=== PATIENT | male | born 1970 | race Two or more races ===

== ENCOUNTER → 2024-07-07 | Outpatient (CLI) | payer MEDICARE, MEDICAID ==
[~2024-07-07] VITALS: Ht 170.2 cm; Wt 104.3 kg
[~2024-07-07] MED LIST: ADENOSINE 88 MG in GIVE UN-DILUTED 0 ML IV ONE; ADENOSINE 90 MG/30 ML INJ IV ONE
== END | disposition home or self-care (01) ==
LOC: Rad HDHVI 09:53
PROVIDERS: ATTEND Internal Medicine Cardiovascular Disease
DX: Z01.810 Encounter for preprocedural cardiovascular examination (principal); I25.10 Atherosclerotic heart disease of native coronary artery without angina pectoris; I25.2 Old myocardial infarction; E78.00 Pure hypercholesterolemia, unspecified; I45.10 Unspecified right bundle-branch block; I12.9 Hypertensive chronic kidney disease with stage 1 through stage 4 chronic kidney disease, or unspecified chronic kidney disease; E11.22 Type 2 diabetes mellitus with diabetic chronic kidney disease; E11.42 Type 2 diabetes mellitus with diabetic polyneuropathy; N18.9 Chronic kidney disease, unspecified; I49.3 Ventricular premature depolarization; I49.1 Atrial premature depolarization; Z82.49 Family history of ischemic heart disease and other diseases of the circulatory system
CPT/HCPCS: 78452; 93005; A9500; J0153; 96374; 96375

== ENCOUNTER → 2024-07-08 | Outpatient (CLI) | payer MEDICARE, MEDICAID | END | disposition home or self-care (01) | LOC: Rad HDHVI 08:03 | PROVIDERS: ATTEND Internal Medicine Cardiovascular Disease | DX: I35.1 Nonrheumatic aortic (valve) insufficiency (principal); I10 Essential (primary) hypertension; E66.9 Obesity, unspecified | CPT/HCPCS: 93306 ==

== ENCOUNTER 2024-07-27 07:42 | Day surgery (SDC) | payer OTHER, MEDICAID ==
[2024-07-23 10:38] LABS: Basophils # (auto) 0.1 10 ^3/uL (0-0.2); Basophils % (auto) 1.2 % (0.0-2.0); Eosinophils # (auto) 0.2 10 ^3/uL (0-0.8); Eosinophils % (auto) 2.9 % (0.0-7.0); Hemoglobin 16.3 g/dL (13.5-17.5); Lymphocytes # (auto) 2.3 10 ^3/uL (0.4-5.4); Lymphocytes % (auto) 37.4 % (10.0-50.0); Mean Corpuscular Hemoglobin 31.7 pg (28.0-32.0); Mean Corpuscular Hgb Conc. 32.6 g/dL (32.0-36.0); Mean Corpuscular Volume 97.1 fL (80.0-100.0); Monocytes # (auto) 0.4 10 ^3/uL (0-1.3); Monocytes % (auto) 7.1 % (0.0-12.0); Neutrophils # (auto) 3.1 10 ^3/uL (1.6-8.6); Neutrophils % (auto) 51.4 % (37.0-80.0); Nucleated Red Blood Cells % 0.4 %; Platelet Count (auto) 234 10^3/uL (140-450); Red Blood Cells 5.15 10^6/uL (4.5-5.90); Red Cell Distribution Width 14.5 % (11.8-14.3); White Blood Cell 6.1 10^3/uL (4.4-10.8)
[2024-07-23 10:44] LABS: Urine Bacteria FEW /hpf (None Seen); Urine Blood TRACE /uL (Negative); Urine Clarity Clear (Clear); Urine Color Yellow (Yellow); Urine Protein, UAD 3+ (Negative); Urine Specific Gravity 1.017 (1.001-1.035); Urine Squamous Epithelial Cell FEW /hpf (<5); Urine Urobilinogen Normal (Negative); Urine WBC 14 /HPF (0-3)
[2024-07-23 10:50] LABS: INR 0.97 (0.9-1.15); Partial Thromboplastin Time 27.1 SEC (24.5-34.5); Prothrombin Time 10.3 sec (9.3-11.8)
[2024-07-23 11:02] LABS: Alanine Aminotransferase 19 U/L (7-40); Albumin 4.6 g/dL (3.2-4.8); Alkaline Phosphatase 96 U/L (46-116); Anion Gap 5 (5-15); Aspartate Aminotransferase 24 U/L (13-40); Calcium 9.6 mg/dL (8.7-10.4); Glucose 95 mg/dL (74-106); Sodium 136 mmol/L (136-145)
[2024-07-23 11:24] LABS: Bilirubin, Total 1.5 mg/dL (0.2-1.0); Blood Urea Nitrogen 27 mg/dL (9-23); Carbon Dioxide 36 mmol/L (20-31); Chloride 95 mmol/L (98-107); Potassium 3.4 mmol/L (3.5-5.1); Total Protein 8.9 g/dL (5.7-8.2)
[~2024-07-27] VITALS: Ht 170.2 cm; Wt 104.3 kg
[~2024-07-27 07:42] MED LIST changes: -ADENOSINE 88 MG in GIVE UN-DILUTED 0 ML IV ONE; -ADENOSINE 90 MG/30 ML INJ IV ONE; +ATOR-507 PO; +CARV6.2551 PO; +FURO40TA4 PO; +LOSA-534 PO; +NIFE1TAB31 PO; +SEVE800T8 PO; +SODI10PA PO
[2024-07-27] MEDS ORDERED: ceFAZolin 2 GM/D5W100ml 100 ML IV ONE (08:07)
[2024-07-27] MEDS ORDERED: BUPIVACAINE 0.5% MPF INJ 30ML SDV IJ ONE (08:41)
[2024-07-27] MEDS ORDERED: GABAPENTIN 300 MG CAP ONE (08:47)
[2024-07-27] MEDS ORDERED: ACETAMINOPHEN IV 100 ML IV ONE (08:47)
[2024-07-27] MEDS: GABAPENTIN 300 MG CAP PO ONE (08:50)
[2024-07-27] MEDS: ACETAMINOPHEN IV 1000 MG/100ML (10MG/ML) IV ONE (08:50)
[2024-07-27] MEDS ORDERED: LIDOCAINE 1% INJ PF 5ML AMP ONE (08:53)
[2024-07-27] MEDS ORDERED: ONDANSETRON HCL 4 MG/2 ML VIAL ONE (08:53)
[2024-07-27] MEDS ORDERED: GLYCOPYRROLATE 0.2 MG/ML 1ML VIAL ONE (08:53)
[2024-07-27] MEDS ORDERED: DexAMETHasone SOD PHOS 10MG/1ML VIAL INJ ONE (08:53)
[2024-07-27] MEDS ORDERED: PROPOFOL 10 MG/ML 20 ML IV ONE ×2 (08:53→09:14)
[2024-07-27] MEDS ORDERED: KETAMINE 50mg/ML 1ml syringe ONE (08:55)
[2024-07-27 09:30] VITALS: PULSE 65; RESP 20; O2SAT 96
[2024-07-27 09:40] VITALS: PULSE 82; RESP 13; O2SAT 97
[2024-07-27] MEDS ORDERED: NALOXONE HCL 0.4 MG/ML VIAL IV PRN (09:45)
[2024-07-27] MEDS ORDERED: ONDANSETRON HCL 4 MG/2 ML VIAL IV PRN (09:45)
[2024-07-27] MEDS ORDERED: FLUMAZENIL 0.1 MG/ML INJ 10ML MDV IV PRN (09:45)
[2024-07-27] MEDS ORDERED: HYDROmorphone HCL 2 MG/ML VL/or syr IV PRN (09:45)
[2024-07-27] MEDS ORDERED: ePHEDrine SULFATE 50 MG/ML AMP IV PRN (09:45)
[2024-07-27] MEDS ORDERED: fentaNYL CITRATE 100 MCG/2 ML VL IV PRN (09:45)
[2024-07-27] MEDS ORDERED: hydrALAZINE HCL 20 MG/ML VL IV PRN (09:45)
[2024-07-27 09:54] VITALS: PULSE 65; RESP 20; O2SAT 96
[2024-07-27 10:00] VITALS: BP 134/78; PULSE 65; RESP 12; O2SAT 95
[2024-07-27] MEDS: BUPIVACAINE 0.5% P/F INJ 10 ML VIAL ONE (10:31)
--- NOTE | 2024-07-27 13:32 | DVHOP2 ---
Operative Report - 2 Report Details Date: 07/27/24 Preop Diagnosis: 1. Right foot metatarsalgia 2. Right foot plantar diabetic wound 3. Right foot abscess Postop Diagnosis: Right foot plantar foot wound Surgeon: Geo Motley MD Anesthesiologist: See anesthesia Anesthesia: Mac Consent: The patient was informed of the risks and benefits of the procedure. These include but are not limited to complications of anesthesia, postoperative infection, incomplete relief of symptoms, recurrence of symptoms, damage to blood vessels, nerves and tendons, deep venous thrombosis, pulmonary embolism and possible need for repeat surgery in the future. Complications: None Estimated Blood Loss: Minimal Fluids: See anesthesia Findings: Consistent with the diagnosis Indications for Surgery: Worsening right foot pain and wound Name of Procedure Performed 1. Right foot alli osteotomy 3rd metatarsal (89950) 2. Right foot wound debridement (75851) Procedure Details Procedure Details: PRE-PROCEDURE INFORMATION: In the pre-op holding area, the extremity to be oper ated on was clearly marked and the patient verified correct laterality of the marking. The patient was transferred to the OR table and placed in a supine position. A timeout was performed in which identification of the correct patient, procedure, location, and materials was done. The right foot and leg were prepped and draped in normal sterile fashion. DESCRIPTION OF PROCEDURE: Attention was directed to the right 3rd metatarsal. The incision was deepened through blunt and sharp dissection. Care was taken to avoid any damage to neurovascular structures throughout the dissection. Incision was carried to the level of the 3rd metatarsal neck. Using an MIS per, an osteotomy was made across the neck of the metatarsal head. It was noted on intraoperative fluoroscopy, there was significant reduction of the deformity. Attention was directed to the right plantar foot. Debridement was done to the right plantar foot with a 15. Blade. Below Subcutaneous debridement, below Subcutaneous tissue excised u, with a total area debrided of sq cm. < 20 sq cm was excised, 100% of the wounds were debrided All surgical wounds were irrigated copiously with saline and closed in layers with the aforementioned suture material. A dry sterile dressing was placed on the surgical extremity. The patient was placed in a postop shoe POSTOPERATIVE INFORMATION: The patient tolerated the above noted procedure and anesthesia well and was transferred to the PACU with vital signs stable, and vascular status intact with capillary refill intact to all digits. Postoperative instructions reviewed in detail with the patient with written instructions provided. Patient will return to clinic in approximately 10-14 days for first postoperative visit. Patient has the number of the clinic and was instructed to call prior to that time should any problems, questions, or concerns arise. Condition Good Disposition Home GEO MOTLEY DPM Jul 27, 2024 13:32
== END 2024-07-27 10:15 | disposition home or self-care (01) ==
LOC: SUR 07:42
PROVIDERS: ATTEND Podiatrist
DX: M77.41 Metatarsalgia, right foot (principal); E10.621 Type 1 diabetes mellitus with foot ulcer; L97.511 Non-pressure chronic ulcer of other part of right foot limited to breakdown of skin; L02.611 Cutaneous abscess of right foot; I12.0 Hypertensive chronic kidney disease with stage 5 chronic kidney disease or end stage renal disease; E10.22 Type 1 diabetes mellitus with diabetic chronic kidney disease; N18.6 End stage renal disease; E10.42 Type 1 diabetes mellitus with diabetic polyneuropathy; E66.01 Morbid (severe) obesity due to excess calories; I25.10 Atherosclerotic heart disease of native coronary artery without angina pectoris; I25.2 Old myocardial infarction; Z95.5 Presence of coronary angioplasty implant and graft; Z99.2 Dependence on renal dialysis; Z79.899 Other long term (current) drug therapy
CPT/HCPCS: 11042; 28308; 36415; 80053; 81001; 85025; 85610; 85730; J1100; J2405; J2704; J3490; J0131

== ENCOUNTER 2024-09-23 08:51 | Emergency (ER) | payer OTHER, MEDICAID ==
[~2024-09-23] VITALS: Ht 170.2 cm; Wt 110.1 kg
[2024-09-23 11:28] VITALS: BP 124/80; PULSE 69; RESP 15; TEMP 98.1; O2SAT 98
--- NOTE | 2024-09-23 11:32 | ED.PDOC ---
History of Present Illness(SKN HPI Comments A 54 year old male presents to the ED c/o possible abscess of back. Patient states he has had a painful lump on his middle to lower back region for the past 1 year. Patient reports this lump began to become red and increasingly painful with swelling over the past 1 week, prompting him to come to the ED for evaluation. Patient is concerned he may have an abscess to this area. Denies fever, SOB, chest pain, abdominal pain, nausea, vomiting, diarrhea, headache, dizziness, vision changes, or numbness/tingling of extremities. No other symptoms or modifying factors reported at this time. Patient is alert and oriented x4 and has a stable gait. Chief Complaint: Abscess Time Seen by MD: 09:18 History of Present Illness: Nurses Notes, Medications, Allergies Allergies: Coded Allergies: No Known Drug Allergy (Verified Allergy, Unknown, 07/07/24) Home Meds Active Scripts Doxycycline Hyclate (DOXYCYCLINE HYCLATE) 100 Mg Tab, 1 TAB PO BID for 7 Days, #14 TAB 0 Refills Prov:LUIS ZAIDI AXMINSTER RUG SETTER 09/23/24 Reported Medications Carvedilol (Carvedilol) 6.25 Mg Tab, 6.25 MG PO BID, TAB 07/23/24 Sodium Zirconium Cyclosilicate (Lokelma) 10 Gm Roel, 10 GM PO DAILY, PACK 07/23/24 Furosemide (Furosemide) 40 Mg Tab, 40 MG PO DAILY, TAB 07/23/24 Atorvastatin Calcium (Lipitor) 40 Mg Tab, 40 MG PO DAILY, TAB 07/23/24 Nifedipine (Nifedipine Er) 30 Mg Tab, 30 MG PO DAILY, TAB 07/23/24 Sevelamer Carbonate (Renvela) 800 Mg Tab, 400 MG PO BID, TAB 07/23/24 Losartan Potassium (Losartan Potassium) 50 Mg Tab, 50 MG PO DAILY, TAB 07/23/24 Information Source: Patient Mode of Arrival: Ambulatory Severity: Moderate Timing: Days Duration: Since onset, Days Prehospital treatment: None Location: Back Mechanism: Spontaneous Onset Occurence: Indoors Object: None Condition of Object: None Retained Foreign Body: No Wound Type: Abscess Immunization Status of Animal: NA Tetanus: Unknown History of: None Associated Signs and Symptoms: Redness, Swelling, Pain Past Medical History PAST MEDICAL HISTORY: ESRD, High Lipids, HTN Surgical History: Denies all surgeries Family History Family History: Reviewed,noncontributory to illness Social History Smoker: Non-Smoker Alcohol: Denies ETOH Use Drugs: Denies Drug Use Lives In: Home Constitutional: denies: chills, diaphoresis, fatigue, fever, malaise, sweats, weakness, others EENTM: denies: blurred vision, double vision, ear bleeding, ear discharge, ear drainage, ear pain, ear ringing, eye pain, eye redness, hearing loss, mouth pain, mouth swelling, nasal discharge, nose bleeding, nose congestion, nose pain, photophobia, tearing, throat pain, throat swelling, voice changes, others Respiratory: denies: cough, hemoptysis, orthopnea, SOB at rest, shortness of breath, SOB with excertion, stridor, wheezing, others Cardiovascular: denies: chest pain, dizzy spells, diaphoresis, Dyspnea on exertion, edema, irregular heart beat, left arm pain, lightheadedness, palpitations, PND, syncope, others Gastrointestinal: denies: abdomen distended, abdominal pain, blood streaked bowels, constipated, diarrhea, dysphagia, difficulty swallowing, hematemesis, melena, nausea, poor appetite, poor fluid intake, rectal bleeding, rectal pain, vomiting, others Genitourinary: denies: burning, dysuria, flank pain, frequency, hematuria, incontinence, penile discharge, penile sore, pain, testicle pain, testicle swelling, urgency, others Neurological: denies: dizziness, fainting, headache, left sided numbness, left sided weakness, numbness, paresthesia, pre-existing deficit, right sided numbness, right sided weakness, seizure, speech problems, tingling, tremors, weakness, others Musculoskeletal: denies: back pain, gout, joint pain, joint swelling, muscle pain, muscle stiffness, neck pain, others Integumetry: reports: lumps (abscess to middle/lower back); denies: bruises, change in color, change in hair/nails, dryness, laceration, lesions, rash, wounds, others Allergic/Immunocompromised: denies: Difficulty Healing, Frequent Infections, Hives, Itching, others Hematologic/Lymphatic: denies: anemia, blood clots, easy bleeding, easy bruising, swollen glands, others Endocrine: denies: excessive hunger, excessive sweating, excessive thirst, excessive urination, flushing, intolerance to cold, intolerance to heat, unexplained weight gain, unexplained weight loss, others Psychiatric: denies: anxiety, bipolar disorder, depression, hopeless, panic disorder, schizophrenia, sleepless, suicidal, others All Other Systems: Reviewed and Negative Physical Exam General Appearance: No Apparent Distress, Normal HEENT: Normal ENT Inspection, Pharynx Normal, TMs Normal Neck: Full Range of Motion, Non-Tender, Normal, Normal Inspection Respiratory: Chest Non-Tender, Lungs Clear, No Accessory Muscle Use, No Respiratory Distress, Normal Breath Sounds Cardiovascular: No Edema, No JVD, No Murmur, No Gallop, Normal Peripheral Pulses, Regular Rate/Rhythm Breast Exam: Deferred Gastrointestinal: No Organomegaly, Non Tender, No Pulsatile Mass, Normal Bowel Sounds, Soft Genitalia: Deferred Pelvic: Deferred Rectal: Deferred Extremities: No calf tenderness, Normal capillary refill, Normal inspection, Normal range of motion, Non-tender, No pedal edema Musculoskeletal : Apperance: Normal Neurologic: Alert, print designer II-XII nml as Tested, No Motor Deficits, Normal Affect, Normal Mood, No Sensory Deficits Cerebellar Function: Normal Reflexes: Normal Skin: Dry, Warm, Other (Round 2x2cm erythematous soft tissue swelling notes to right lumbar paraspinal region. Tenderness to palpation noted with fluctuance. No crepitus on palpation.) Lymphatic: No Adenopathy Was a procedure done? Was a procedure done?: No Differential Diagnosis (INTG) Differential Diagnosis: N/A Differential Diagnosis: Abscess, Cellulitis, Erysipelas, Other (Furuncle, soft tissue infection) Differential Diagnosis: N/A Abscess: N/A Differential Diagnosis: N/A X-Ray, Labs, Meds, VS Vital Signs Date Time Temp Pulse Resp B/P (MAP) Pulse Ox O2 Delivery O2 Flow Rate FiO2 09/23/24 11:28 98.1 69 15 124/80 (95) 98 98.1 09/23/24 10:47 83 09/23/24 10:47 98.8 83 18 94/57 (69) 98.8 09/23/24 10:38 98.2 70 18 120/83 (95) 98 98.2 09/23/24 08:52 98.8 83 18 94/57 (69) 95 98.8 X-Ray, Labs, Meds, VS Comment This patient presents with signs and symptoms consistent with a cutaneous abscess. The abscess is localized without any evidence of deep soft tissue infection based on physical examination. The patient required incision and drainage. Differential diagnosis considered but not limited to: abscess, folliculitis, cellulitis. I also considered deep space infection, necrotizing fasciitis, sepsis, however, this is less likely as the patient does not have rapid expanding erythema or pain out of proportion to suggest necrotizing fasciitis. There is no evidence of sepsis on both a review of their vitals and clinical exam. Procedure Note: Verbal informed consent was obtained from the patient. I discussed the indications, benefits, alternatives and complications to performing an incision and drainage. The patient understands the risks include, but are not limited to scarring, underlying structure injury, bleeding, nerve injury, new infection, and resultant disability. The skin overlying the abscess was prepared with chlorahexidine. The skin surrounding the abscess was locally anesthetized using 1% Lidocaine An incision using a number 11 blade scalpel was made overlying the abscess. The incision was 1 cm long. Loculations were bluntly dissected using a hemostat. Careful exploration of the abscess cavity demonstrated no foreign body. The abscess cavity was packed with sterile packing. The wound was then dressed with sterile gauze. The wound was hemostatic at the conclusion of the procedure. The patient did not appear to suffer any complications as a result of the procedure. The patient was given DOXYCYCLINE 100 mg BID x 10 days and will f/u with PMD 3-5 days or return to the ER sooner if it worsens. The patient is given instructions and materials to repack the wound DAILY. The patient was counseled in regard to the diagnosis and management of the condition and verbalized understanding of this. The patient understands to return to the ER or seek immediate medical attention if the symptoms worsen. Time of 1ST Reevaluation: 12:15 Reevaluation 1ST: Improved Patient Education/Counseling: Diagnosis, Treatment, Need For Follow Up Family Education/Counseling: Diagnosis, Treatment, Need For Follow Up Departure 1 Departure Time of Disposition: 12:23 Impression: Primary Impression: Abscess Disposition: 01 HOME / SELF CARE / HOMELESS Condition: Stable Additional Instructions: Follow up with PCP in 1-2 days. Take medications as prescribed. Return to ED for any new or worsening symptoms. e-Prescriptions Doxycycline Hyclate (DOXYCYCLINE HYCLATE) 100 Mg Tab 1 TAB PO BID for 7 Days, #14 TAB 0 Refills Prov: LUIS ZAIDI AXMINSTER RUG SETTER 09/23/24 Discharged With: Self, Legal Guardian Critical Care Note Critical Care Time?: No Stability Stability form required: No I personally scribed for LUIS ZAIDI AXMINSTER RUG SETTER ([email or web address]) on 09/23/24 at 11:32. Electronically submitted by Davidson Mahmood ([email or web address]). LUIS ZAIDI AXMINSTER RUG SETTER Sep 23, 2024 11:32
[2024-09-23] MEDS ORDERED: DOXY-286 PO (12:26)
== END 2024-09-23 12:35 | disposition home or self-care (01) ==
LOC: ER 08:51
DX: L02.212 Cutaneous abscess of back [any part, except buttock and flank] (principal); I12.0 Hypertensive chronic kidney disease with stage 5 chronic kidney disease or end stage renal disease; N18.6 End stage renal disease; Z79.899 Other long term (current) drug therapy
CPT/HCPCS: 10060

== ENCOUNTER 2024-09-25 05:53 | Emergency (ER) | payer OTHER, MEDICAID ==
[~2024-09-25] VITALS: Ht 170.2 cm; Wt 108.6 kg
[~2024-09-25 05:53] MED LIST changes: +DOXY-286 PO
--- NOTE | 2024-09-25 06:36 | ED.PDOC ---
History of Present Illness(SKN HPI Comments 54 y/o M, with PMHx of ESRD, HLD, and HTN presents to the ED for CC of wound check. Patient reports, he had an abscess lanced on his mid back on Saturday ( 09/23/24) and presents for a follow up today (09/25/24). Upon arrival to the ED, patient has dressing and packing to wound area. Patient denies fever, chills, sweats, nausea, or vomiting. No other symptoms or modifying factors present at this time. Chief Complaint: Wound Check Time Seen by MD: 06:19 History of Present Illness: Nurses Notes, Medications, Allergies Allergies: Coded Allergies: No Known Drug Allergy (Verified Allergy, Unknown, 07/07/24) Home Meds Active Scripts Doxycycline Hyclate (DOXYCYCLINE HYCLATE) 100 Mg Tab, 1 TAB PO BID for 7 Days, #14 TAB 0 Refills Prov:LUIS ZAIDI SPECIAL INVESTIGATOR 09/23/24 Reported Medications Carvedilol (Carvedilol) 6.25 Mg Tab, 6.25 MG PO BID, TAB 07/23/24 Sodium Zirconium Cyclosilicate (Lokelma) 10 Gm Roel, 10 GM PO DAILY, PACK 07/23/24 Furosemide (Furosemide) 40 Mg Tab, 40 MG PO DAILY, TAB 07/23/24 Atorvastatin Calcium (Lipitor) 40 Mg Tab, 40 MG PO DAILY, TAB 07/23/24 Nifedipine (Nifedipine Er) 30 Mg Tab, 30 MG PO DAILY, TAB 07/23/24 Sevelamer Carbonate (Renvela) 800 Mg Tab, 400 MG PO BID, TAB 07/23/24 Losartan Potassium (Losartan Potassium) 50 Mg Tab, 50 MG PO DAILY, TAB 07/23/24 Information Source: Patient Mode of Arrival: Ambulatory Severity: Moderate Timing: Days Duration: Since onset Prehospital treatment: None Location: Back Mechanism: Spontaneous Onset Object: None Condition of Object: None Retained Foreign Body: No Wound Type: Abscess Immunization Status of Animal: NA Tetanus: Unknown History of: None Associated Signs and Symptoms: None Past Medical History PAST MEDICAL HISTORY: ESRD, High Lipids, HTN Surgical History: Denies all surgeries Family History Family History: Reviewed,noncontributory to illness Social History Smoker: Non-Smoker Alcohol: Denies ETOH Use Drugs: Denies Drug Use Lives In: Home Constitutional: denies: chills, diaphoresis, fatigue, fever, malaise, sweats, weakness, others EENTM: denies: blurred vision, double vision, ear bleeding, ear discharge, ear drainage, ear pain, ear ringing, eye pain, eye redness, hearing loss, mouth pain, mouth swelling, nasal discharge, nose bleeding, nose congestion, nose pain, photophobia, tearing, throat pain, throat swelling, voice changes, others Respiratory: denies: cough, hemoptysis, orthopnea, SOB at rest, shortness of breath, SOB with excertion, stridor, wheezing, others Cardiovascular: denies: chest pain, dizzy spells, diaphoresis, Dyspnea on exertion, edema, irregular heart beat, left arm pain, lightheadedness, palpitations, PND, syncope, others Gastrointestinal: denies: abdomen distended, abdominal pain, blood streaked bowels, constipated, diarrhea, dysphagia, difficulty swallowing, hematemesis, melena, nausea, poor appetite, poor fluid intake, rectal bleeding, rectal pain, vomiting, others Genitourinary: denies: burning, dysuria, flank pain, frequency, hematuria, incontinence, penile discharge, penile sore, pain, testicle pain, testicle swelling, urgency, others Neurological: denies: dizziness, fainting, headache, left sided numbness, left sided weakness, numbness, paresthesia, pre-existing deficit, right sided numbness, right sided weakness, seizure, speech problems, tingling, tremors, weakness, others Musculoskeletal: denies: back pain, gout, joint pain, joint swelling, muscle pain, muscle stiffness, neck pain, others Integumetry: denies: bruises, change in color, change in hair/nails, dryness, laceration, lesions, lumps, rash, wounds, others Allergic/Immunocompromised: denies: Difficulty Healing, Frequent Infections, H harry, Itching, others Hematologic/Lymphatic: denies: anemia, blood clots, easy bleeding, easy bruising, swollen glands, others Endocrine: denies: excessive hunger, excessive sweating, excessive thirst, excessive urination, flushing, intolerance to cold, intolerance to heat, unexplained weight gain, unexplained weight loss, others Psychiatric: denies: anxiety, bipolar disorder, depression, hopeless, panic disorder, schizophrenia, sleepless, suicidal, others All Other Systems: Reviewed and Negative Physical Exam General Appearance: No Apparent Distress, Normal HEENT: Normal ENT Inspection, Pharynx Normal Neck: Full Range of Motion, Non-Tender, Normal, Normal Inspection Respiratory: Chest Non-Tender, Lungs Clear, No Accessory Muscle Use, No Respiratory Distress, Normal Breath Sounds Cardiovascular: No Edema, No Murmur, No Gallop, Normal Peripheral Pulses, Regular Rate/Rhythm Breast Exam: Deferred Gastrointestinal: No Organomegaly, Non Tender, No Pulsatile Mass, Normal Bowel Sounds, Soft Genitalia: Deferred Pelvic: Deferred Rectal: Deferred Extremities: No calf tenderness, Normal capillary refill, Normal inspection, Normal range of motion, Non-tender, No pedal edema Musculoskeletal : Apperance: Normal Neurologic: Alert, rooming house inspector II-XII nml as Tested, No Motor Deficits, Normal Affect, Normal Mood, No Sensory Deficits Cerebellar Function: Normal Reflexes: Normal Skin: Dry, Normal Color, Warm, Other (lanced abscess to posterior midback, packing in place, 4inches of packing removed, no erythema or discharge to wound site) Lymphatic: No Adenopathy Was a procedure done? Was a procedure done?: Yes Sedation Sedation?: No Incision and Drainage Incision and Drainage: Abscess Notes Packing changed. Proximally 4 in of packing removed from wound. Another 3 in of packing replaced patient tolerated well. Differential Diagnosis (INTG) Differential Diagnosis: Abrasion, Cellulitis, Hematoma, Laceration Differential Diagnosis: Abscess, Cellulitis, Other Abscess: Abscess X-Ray, Labs, Meds, VS Vital Signs Date Time Temp Pulse Resp B/P (MAP) Pulse Ox O2 Delivery O2 Flow Rate FiO2 09/25/24 05:55 98.2 80 16 112/75 (87) 95 98.2 Current Medications Medications (Trade) Dose Ordered Sig/[place] Route Start Time Stop Time Status Last Admin Bacitracin 1 applic ONCE ONCE TOP 09/25/24 06:45 09/25/24 06:46 DC 09/25/24 06:48 54-year-old male presents here for wound check. Patient was seen here 2 days ago an I and D was performed. He is here for repacking. At this time proximally 4 in of packing has been removed. No purulent discharge removed. There was no evidence of surrounding cellulitis. No evidence of infection. I have repacked the wound myself with proximally 3 in of 1/4 packing. Patient has tolerated the procedure well. Wound has been redressed with bacitracin, nonadhe sive dressing and abdominal pad. Advised patient to cover the area with Saran wrap present seal saran wrap while he showers. Patient agreeable. Advised patient to return back to the ER in 2 days for wound checking again. Time of 1ST Reevaluation: 08:19 Reevaluation 1ST: Unchanged Patient Education/Counseling: Diagnosis, Treatment Family Education/Counseling: No Family Present Departure 1 Departure Time of Disposition: 07:22 Impression: Primary Impression: Abscess Additional Impressions: Wound check, abscess Wound, open, back Qualified Codes: S21.209D - Unspecified open wound of unspecified back wall of thorax without penetration into thoracic cavity, subsequent encounter Disposition: HOME / SELF CARE / HOMELESS Condition: Stable Additional Instructions: Return back to the ER in 2 days for recheck of your wound and potential repacking. Return to the ER sooner if her symptoms worsen or persist. Discharged With: Self Critical Care Note Critical Care Time?: No Stability Stability form required: No Heart Score Heart Score: Heart Score Response (Comments) Value History N/A 0 EKG N/A 0 Age N/A 0 Risk Factors N/A 0 Troponin N/A 0 Total 0 ZELDA DE LA CRUZ MD Sep 25, 2024 06:36
[2024-09-25] MEDS: BACITRACIN TOP OINT 1 UD PKG TOP ONE (06:48)
[2024-09-25 07:37] VITALS: BP 131/84; TEMP 98.8
[2024-09-25 07:38] VITALS: PULSE 77; RESP 16; O2SAT 95
== END 2024-09-25 07:49 | disposition home or self-care (01) ==
LOC: ER 05:55
DX: S21.209D Unspecified open wound of unspecified back wall of thorax without penetration into thoracic cavity, subsequent encounter (principal); I12.0 Hypertensive chronic kidney disease with stage 5 chronic kidney disease or end stage renal disease; N18.6 End stage renal disease; E78.5 Hyperlipidemia, unspecified; Z79.899 Other long term (current) drug therapy; Z48.00 Encounter for change or removal of nonsurgical wound dressing; X58.XXXD Exposure to other specified factors, subsequent encounter

== ENCOUNTER 2024-09-28 06:56 | Emergency (ER) | payer OTHER, MEDICAID ==
[~2024-09-28] VITALS: Ht 170.2 cm; Wt 110.0 kg
[2024-09-28 07:36] VITALS: BP 137/82; PULSE 77; RESP 17; TEMP 98; O2SAT 97
--- NOTE | 2024-09-28 08:32 | ED.PDOC ---
History of Present Illness(SKN HPI Comments 54 y/o M, with PMHx of ESRD, HLD, and HTN presents to the ED for CC of wound check. No other complaint or concern Chief Complaint: Wound Check Time Seen by MD: 07:21 Primary Care Provider: MONSE History of Present Illness: Nurses Notes, Medications, Allergies Allergies: Coded Allergies: No Known Drug Allergy (Verified Allergy, Unknown, 07/07/24) Home Meds Active Scripts Doxycycline Hyclate (DOXYCYCLINE HYCLATE) 100 Mg Tab, 1 TAB PO BID for 7 Days, #14 TAB 0 Refills Prov:LUIS ZAIDI AIRCRAFT RIVETER 09/23/24 Reported Medications Carvedilol (Carvedilol) 6.25 Mg Tab, 6.25 MG PO BID, TAB 07/23/24 Sodium Zirconium Cyclosilicate (Lokelma) 10 Gm Roel, 10 GM PO DAILY, PACK 07/23/24 Furosemide (Furosemide) 40 Mg Tab, 40 MG PO DAILY, TAB 07/23/24 Atorvastatin Calcium (Lipitor) 40 Mg Tab, 40 MG PO DAILY, TAB 07/23/24 Nifedipine (Nifedipine Er) 30 Mg Tab, 30 MG PO DAILY, TAB 07/23/24 Sevelamer Carbonate (Renvela) 800 Mg Tab, 400 MG PO BID, TAB 07/23/24 Losartan Potassium (Losartan Potassium) 50 Mg Tab, 50 MG PO DAILY, TAB 07/23/24 Information Source: Patient Mode of Arrival: Ambulatory Past Medical History PAST MEDICAL HISTORY: ESRD, High Lipids, HTN Surgical History: Denies all surgeries Family History Family History: Reviewed,noncontributory to illness Social History Smoker: Non-Smoker Alcohol: Denies ETOH Use Drugs: Denies Drug Use Lives In: Home All Other Systems: Reviewed and Negative (Per HPI) Physical Exam General Appearance: No Apparent Distress, Normal HEENT: Normal ENT Inspection, Pharynx Normal, TMs Normal Neck: Full Range of Motion, Non-Tender, Normal, Normal Inspection Respiratory: Chest Non-Tender, Lungs Clear, No Accessory Muscle Use, No Respiratory Distress, Normal Breath Sounds Cardiovascular: No Edema, No JVD, No Murmur, No Gallop, Normal Peripheral Pulses, Regular Rate/Rhythm Breast Exam: Deferred Gastrointestinal: No Organomegaly, Non Tender, No Pulsatile Mass, Normal Bowel Sounds, Soft Genitalia: Deferred Pelvic: Deferred Rectal: Deferred Extremities: No calf tenderness, Normal capillary refill, Normal inspection, Normal range of motion, Non-tender, No pedal edema Musculoskeletal : Apperance: Normal Neurologic: Alert, client director II-XII nml as Tested, No Motor Deficits, Normal Affect, Normal Mood, No Sensory Deficits Cerebellar Function: Normal Reflexes: Normal Skin: Dry, Normal Color, Warm, Other ((lanced abscess to posterior midback, packing in place, packing removed, no erythema or discharge to wound site)) Lymphatic: No Adenopathy Was a procedure done? Was a procedure done?: No Differential Diagnosis (INTG) Differential Diagnosis: Other X-Ray, Labs, Meds, VS Vital Signs Date Time Temp Pulse Resp B/P (MAP) Pulse Ox O2 Delivery O2 Flow Rate FiO2 09/28/24 07:36 77 17 97 Room Air 09/28/24 07:36 98.0 77 16 137/82 (100) 97 98.0 09/28/24 07:15 97.9 73 18 134/84 (101) 94 97.9 X-Ray, Labs, Meds, VS Comment 54-year-old male presents here for wound check. He is here for repacking. No purulent discharge removed. There was no evidence of surrounding cellulitis. No evidence of infection. I have repacked the wound myself with proximally 3 in of 1/4 packing. Patient has tolerated the procedure well. Wound has been redressed with bacitracin, nonadhesive dressing and abdominal pad. Advised patient to cover the area with Saran wrap present seal saran wrap while he showers. Patient agreeable. Advised patient to return back to the ER in 2 days for wound checking again. Time of 1ST Reevaluation: 08:31 Reevaluation 1ST: Improved Patient Education/Counseling: Diagnosis, Treatment Family Education/Counseling: Diagnosis, Treatment Departure 1 Departure Time of Disposition: 08:32 Impression: Primary Impression: Wound check, abscess Disposition: 01 HOME / SELF CARE / HOMELESS Condition: Stable Discharged With: Self Critical Care Note Critical Care Time?: No Stability Stability form required: No Heart Score Heart Score: Heart Score Response (Comments) Value History N/A 0 EKG N/A 0 Age N/A 0 Risk Factors N/A 0 Troponin N/A 0 Total 0 LUIS ZAIDI NP Sep 28, 2024 08:32
== END 2024-09-28 08:50 | disposition home or self-care (01) ==
LOC: ER 06:56
DX: L02.212 Cutaneous abscess of back [any part, except buttock and flank] (principal); I12.0 Hypertensive chronic kidney disease with stage 5 chronic kidney disease or end stage renal disease; N18.6 End stage renal disease; E78.5 Hyperlipidemia, unspecified; Z48.817 Encounter for surgical aftercare following surgery on the skin and subcutaneous tissue; Z79.899 Other long term (current) drug therapy

== ENCOUNTER 2024-09-30 07:02 | Emergency (ER) | payer OTHER, MEDICAID ==
[~2024-09-30] VITALS: Ht 170.2 cm; Wt 110.0 kg
[2024-09-30 07:39] VITALS: BP 111/75; PULSE 72; RESP 18; TEMP 98.2; O2SAT 96
--- NOTE | 2024-09-30 09:04 | ED.PDOC ---
History of Present Illness(SKN HPI Comments 54 year old male with past medical history of ESRD, hyperlipemia and hypertension presents to the emergency department with a chief complaint of wound check onset today (09/30/24). Patient reports, he had an abscess lanced on his mid back on 09/23/24 and presents for a follow up today (09/30/24). Upon arrival to the ED, patient has dressing and packing to wound area. No other symptoms or modifying factors presents at this time. Denies discharge/drainage Denies fever chills nausea/vomiting Denies rash erythema around wound Chief Complaint: Wound Check Time Seen by MD: 08:30 Primary Care Provider: MONSE History of Present Illness: Nurses Notes, Medications, Allergies Allergies: Coded Allergies: No Known Drug Allergy (Verified Allergy, Unknown, 07/07/24) Home Meds Active Scripts Doxycycline Hyclate (DOXYCYCLINE HYCLATE) 100 Mg Tab, 1 TAB PO BID for 7 Days, #14 TAB 0 Refills Prov:LUIS ZAIDI BOWLING OR SKATING FRONT DESK CLERK 09/23/24 Reported Medications Carvedilol (Carvedilol) 6.25 Mg Tab, 6.25 MG PO BID, TAB 07/23/24 Sodium Zirconium Cyclosilicate (Lokelma) 10 Gm Roel, 10 GM PO DAILY, PACK 07/23/24 Furosemide (Furosemide) 40 Mg Tab, 40 MG PO DAILY, TAB 07/23/24 Atorvastatin Calcium (Lipitor) 40 Mg Tab, 40 MG PO DAILY, TAB 07/23/24 Nifedipine (Nifedipine Er) 30 Mg Tab, 30 MG PO DAILY, TAB 07/23/24 Sevelamer Carbonate (Renvela) 800 Mg Tab, 400 MG PO BID, TAB 07/23/24 Losartan Potassium (Losartan Potassium) 50 Mg Tab, 50 MG PO DAILY, TAB 07/23/24 Information Source: Patient Mode of Arrival: Ambulatory Severity: Moderate Timing: Hours Duration: Since onset Prehospital treatment: None Location: Back Mechanism: Preceding Wound Associated Signs and Symptoms: None Past Medical History PAST MEDICAL HISTORY: ESRD, High Lipids, HTN Surgical History: Denies all surgeries Family History Family History: Reviewed,noncontributory to illness Social History Smoker: Non-Smoker Alcohol: Denies ETOH Use Drugs: Denies Drug Use Lives In: Home All Other Systems: Reviewed and Negative (as per HPI) Physical Exam General Appearance: No Apparent Distress, Normal HEENT: Normal ENT Inspection, Pharynx Normal, TMs Normal Neck: Full Range of Motion, Non-Tender, Normal, Normal Inspection Respiratory: Chest Non-Tender, Lungs Clear, No Accessory Muscle Use, No Respiratory Distress, Normal Breath Sounds Cardiovascular: No Edema, No JVD, No Murmur, No Gallop, Normal Peripheral Pulses, Regular Rate/Rhythm Breast Exam: Deferred Gastrointestinal: No Organomegaly, Non Tender, No Pulsatile Mass, Normal Bowel Sounds, Soft Genitalia: Deferred Pelvic: Deferred Rectal: Deferred Extremities: No calf tenderness, Normal capillary refill, Normal inspection, Normal range of motion, Non-tender, No pedal edema Musculoskeletal : Apperance: Normal Neurologic: Alert, nuclear equipment operator II-XII nml as Tested, No Motor Deficits, Normal Affect, Normal Mood, No Sensory Deficits Cerebellar Function: Normal Reflexes: Normal Skin: Dry, Normal Color, Warm Lymphatic: No Adenopathy Was a procedure done? Was a procedure done?: No X-Ray, Labs, Meds, VS Vital Signs Date Time Temp Pulse Resp B/P (MAP) Pulse Ox O2 Delivery O2 Flow Rate FiO2 09/30/24 07:39 72 18 96 Room Air 09/30/24 07:39 98.2 72 18 111/75 (87) 96 98.2 09/30/24 07:26 98.2 72 18 111/75 (87) 96 98.2 X-Ray, Labs, Meds, VS Comment 54 year old male with past medical history of ESRD, hyperlipemia and hyp ertension presents to the emergency department with a chief complaint of wound check onset today (09/30/24). Patient arrives alert and oriented, ABC's intact, afebrile, vital signs stable, saturating well in room air Additional MDM Review of External, Non-ED records: External records reviewed. Discussion with independent historian (EMS, family) history obtained from the patient/parents (if applicable) at bedside Chronic conditions affecting care: HLD, HTN, ESRD Social determinants of health affecting care: None Consideration of admission (observation or admission): I considered escalation of care to admission for this patient, however given the reassuring workup, the patient is safe for outpatient management. Time of 1ST Reevaluation: 09:00 Departure 1 Departure Time of Disposition: 09:04 Impression: Primary Impression: Wound check, abscess Disposition: 01 HOME / SELF CARE / HOMELESS Condition: Stable Discharged With: Self Critical Care Note Critical Care Time?: No Stability Stability form required: No Heart Score Heart Score: Heart Score Response (Comments) Value History N/A 0 EKG N/A 0 Age N/A 0 Risk Factors N/A 0 Troponin N/A 0 Total 0 I personally scribed for LUIS ZAIDI NP ([email or web address]) on 09/30/24 at 09:37. Electronically submitted by Linda Cheung ([email or web address]). LUIS ZAIDI NP Sep 30, 2024 09:04
== END 2024-09-30 09:13 | disposition home or self-care (01) ==
LOC: ER 07:02
DX: L02.212 Cutaneous abscess of back [any part, except buttock and flank] (principal); I12.0 Hypertensive chronic kidney disease with stage 5 chronic kidney disease or end stage renal disease; N18.6 End stage renal disease; E78.5 Hyperlipidemia, unspecified; Z48.817 Encounter for surgical aftercare following surgery on the skin and subcutaneous tissue; Z79.899 Other long term (current) drug therapy

== ENCOUNTER 2024-12-21 13:20 | Emergency (ER) | payer OTHER, MEDICAID ==
[~2024-12-21] VITALS: Ht 170.2 cm; Wt 111.0 kg
--- NOTE | 2024-12-21 13:58 | ED.PDOC ---
Musculoskeletal HPI Comments This is a 54-year-old male with past medical history of diabetes, coronary artery disease (status post PCI, 8), ESRD on maintenance hemodialysis (Saturday, Saturday, and ), hypertension, CHF, brought to the hospital by imbalance status post mechanical fall. Per patient, he was pulling a wagon of water, upon breaking the hand, he fell on his left side and hit his left shoulder and head on the ground. Subsequently he got left shoulder pain, neck and headache. He also reports of seeing flashing lights and shortness of breaths. Due to severe pain he was not able to stand up. He denies loss of consciousness, nausea, vomiting, and chest pain. Home medication: Previously was taking insulin, losartan, sevelamer, atorvastatin, Lasix, Lokelma, carvedilol, and aspirin Chief Complaint: Fall Injury Time Seen by MD: 13:29 Primary Care Provider: MONSE Murphy Notes: Draughtsman Notes Allergies: Coded Allergies: No Known Drug Allergy (Verified Allergy, Unknown, 07/07/24) Home Meds Active Scripts Doxycycline Hyclate (DOXYCYCLINE HYCLATE) 100 Mg Tab, 1 TAB PO BID for 7 Days, #14 TAB 0 Refills Prov:LUIS ZAIDI FUR REMODELER 09/23/24 Reported Medications Carvedilol (Carvedilol) 6.25 Mg Tab, 6.25 MG PO BID, TAB 07/23/24 Sodium Zirconium Cyclosilicate (Lokelma) 10 Gm Roel, 10 GM PO DAILY, PACK 07/23/24 Furosemide (Furosemide) 40 Mg Tab, 40 MG PO DAILY, TAB 07/23/24 Atorvastatin Calcium (Lipitor) 40 Mg Tab, 40 MG PO DAILY, TAB 07/23/24 Nifedipine (Nifedipine Er) 30 Mg Tab, 30 MG PO DAILY, TAB 07/23/24 Sevelamer Carbonate (Renvela) 800 Mg Tab, 400 MG PO BID, TAB 07/23/24 Losartan Potassium (Losartan Potassium) 50 Mg Tab, 50 MG PO DAILY, TAB 07/23/24 Information Source: Patient Mode of Arrival: EMS Extremity Location: Shoulder Timing: Days Associated signs and symptoms: Shoulder pain, Arm pain, SOB, Neck pain Past Medical History PAST MEDICAL HISTORY: ESRD, High Lipids, HTN Surgical History: Denies all surgeries Family History Family History: Reviewed,noncontributory to illness Social History Smoker: Non-Smoker Alcohol: Denies ETOH Use Drugs: Denies Drug Use Lives In: Home Constitutional: denies: chills, diaphoresis, fatigue, fever, malaise, sweats, weakness, others EENTM: denies: blurred vision, double vision, ear bleeding, ear discharge, ear drainage, ear pain, ear ringing, eye pain, eye redness, hearing loss, mouth pain, mouth swelling, nasal discharge, nose bleeding, nose congestion, nose pain, photophobia, tearing, throat pain, throat swelling, voice changes, others Respiratory: reports: shortness of breath Cardiovascular: denies: chest pain, dizzy spells, diaphoresis, Dyspnea on exertion, edema, irregular heart beat, left arm pain, lightheadedness, palpitations, PND, syncope, others Gastrointestinal: denies: abdomen distended, abdominal pain, blood streaked bowels, constipated, diarrhea, dysphagia, difficulty swallowing, hematemesis, melena, nausea, poor appetite, poor fluid intake, rectal bleeding, rectal pain, vomiting, others Genitourinary: denies: burning, dysuria, flank pain, frequency, hematuria, incontinence, penile discharge, penile sore, pain, testicle pain, testicle swelling, urgency, others Neurological: denies: dizziness, fainting, headache, left sided numbness, left sided weakness, numbness, paresthesia, pre-existing deficit, right sided numbness, right sided weakness, seizure, speech problems, tingling, tremors, weakness, others Musculoskeletal: reports: neck pain Integumetry: denies: bruises, change in color, change in hair/nails, dryness, laceration, lesions, lumps, rash, wounds, others Allergic/Immunocompromised: denies: Difficulty Healing, Frequent Infections, Hives, Itching, others Hematologic/Lymphatic: denies: anemia, blood clots, easy bleeding, easy bruis ing, swollen glands, others Endocrine: denies: excessive hunger, excessive sweating, excessive thirst, exc essive urination, flushing, intolerance to cold, intolerance to heat, unexplained weight gain, unexplained weight loss, others Psychiatric: denies: anxiety, bipolar disorder, depression, hopeless, panic disorder, schizophrenia, sleepless, suicidal, others Physical Exam General Appearance: No Apparent Distress, Normal HEENT: Normal ENT Inspection, Pharynx Normal, TMs Normal Neck: Limited Range of Motion Respiratory: Chest Non-Tender, Lungs Clear, No Accessory Muscle Use, No Respiratory Distress, Normal Breath Sounds Cardiovascular: No Edema, No JVD, No Murmur, No Gallop, Normal Peripheral Pulses, Regular Rate/Rhythm Breast Exam: Deferred Gastrointestinal: No Organomegaly, Non Tender, No Pulsatile Mass, Normal Bowel Sounds, Soft Genitalia: Deferred Pelvic: Deferred Rectal: Deferred Extremities: Decreased range of motion, Tender Neurologic: Alert, mitigation supervisor II-XII nml as Tested, No Motor Deficits, Normal Affect, Normal Mood, No Sensory Deficits Cerebellar Function: Normal Reflexes: Normal Skin: Dry, Normal Color, Warm Lymphatic: No Adenopathy Was a procedure done? Was a procedure done?: No Differential Diagnosis EXT Differential Diagnosis: Fracture, Sprain, Dislocation, Laceration, Contusion, Strain, Neurovascular injury X-Ray, Labs, Meds, VS Vital Signs Date Time Temp Pulse Resp B/P (MAP) Pulse Ox O2 Delivery O2 Flow Rate FiO2 12/21/24 14:14 17 98 Room Air* 0 21 12/21/24 13:25 98.5 74 16 160/98 100 98.5 Lab Test 12/21/24 14:14 Range/Units White Blood Count 6.4 4.4-10.8 10^3/uL Red Blood Count 5.12 4.5-5.90 10^6/uL Hemoglobin 16.7 13.5-17.5 g/dL Hematocrit 48.8 41.0-53.0 % Mean Corpuscular Volume 95.4 80.0-100.0 fL Mean Corpuscular Hemoglobin 32.6 H 28.0-32.0 pg Mean Corpuscular Hemoglobin Concent 34.2 32.0-36.0 g/dL Red Cell Distribution Width 14.6 H 11.8-14.3 % Platelet Count 183 140-450 10^3/uL Mean Platelet Volume 8.0 6.9-10.8 fL Neutrophils (%) (Auto) 60.8 37.0-80.0 % Lymphocytes (%) (Auto) 27.8 10.0-50.0 % Monocytes (%) (Auto) 7.5 0.0-12.0 % Eosinophils (%) (Auto) 2.7 0.0-7.0 % Basophils (%) (Auto) 1.2 0.0-2.0 % Neutrophils # (Auto) 3.9 1.6-8.6 10 ^3/uL Lymphocytes # (Auto) 1.8 0.4-5.4 10 ^3/uL Monocytes # (Auto) 0.5 0-1.3 10 ^3/uL Eosinophils # (Auto) 0.2 0-0.8 10 ^3/uL Basophils # (Auto) 0.1 0-0.2 10 ^3/uL Nucleated Red Blood Cells 0.1 % Sodium Level 141 136-145 mmol/L Potassium Level 4.5 3.5-5.1 mmol/L Chloride Level 99 98-107 mmol/L Carbon Dioxide Level 27 20-31 mmol/L Anion Gap 15 5-15 Blood Urea Nitrogen 59 H 9-23 mg/dL Creatinine 8.15 H 0.700-1.30 mg/dL Glomerular Filtration Rate Calc 7 >90 mL/min BUN/Creatinine Ratio 7.2 L 10.0-20.0 Serum Glucose 126 H 74-106 mg/dL Calcium Level 8.2 L 8.7-10.4 mg/dL Total Bilirubin 1.3 H 0.2-1.0 mg/dL Aspartate Amino Transferase (AST) 20 13-40 U/L Alanine Aminotransferase (ALT) 15 7-40 U/L Alkaline Phosphatase 90 46-116 U/L Total Protein 7.8 5.7-8.2 g/dL Albumin 4.0 3.2-4.8 g/dL Plasma/Serum Blood Alcohol 4.7 <10 mg/dL Current Medications Medications (Trade) Dose Ordered Sig/[place] Route Start Time Stop Time Status Last Admin Acetaminophen (Tylenol Tablet) 650 mg ONCE ONCE PO 12/21/24 14:00 12/21/24 14:05 DC 12/21/24 14:14 Time of 1ST Reevaluation: 16:00 Reevaluation 1ST: Unchanged Time of 2ND Reevaluation: 17:00 Reevaluation 2ND: Unchanged Patient Education/Counseling: Diagnosis, Treatment, Prognosis, Need For Follow Up Family Education/Counseling: No Family Present Comments Patient was admitted due to left shoulder pain status post mechanical fall. Head CT scan, and head neck CT scan shows normal findings Shoulder x-ray shows mildly displaced left clavicular fracture. Patient was given pain killer Clavicle splint was applied Patient was vitally stable Patient discharged with ibuprofen and Protonix Follow up with the PCP Departure 1 Departure Time of Disposition: 18:13 Impression: Primary Impression: Clavicle fracture Additional Impression: Shoulder injury Disposition: 01 HOME / SELF CARE / HOMELESS Condition: Fair Critical Care Note Critical Care Time?: No Stability Stability form required: No Heart Score Heart Score: Heart Score Response (Comments) Value History N/A 0 EKG N/A 0 Age 45-64 1 Risk Factors >3 or Hx ASHD 2 Troponin N/A 0 Total 3 GREYSON STOLL Dec 21, 2024 13:58
[2024-12-21] MEDS: MORPHINE SULFATE INJ 2 MG/ml SYRG IV ONE (14:10)
[2024-12-21 14:14] VITALS: RESP 17; O2SAT 98
[2024-12-21] MEDS: ACETAMINOPHEN 325 MG TAB PO ONE (14:14)
--- NOTE | 2024-12-21 14:26 | DVH ---
CLINICAL INDICATION: fall TECHNIQUE: 2 radiographic views of the shoulder were obtained. Comparison: None FINDINGS/IMPRESSION: Questionable deformity medial aspect of the left clavicle Acromioclavicular joint appears normal. Glenohumeral joint is in normal alignment with no fracture or dislocation.
--- NOTE | 2024-12-21 14:32 | DVH ---
EXAM: CT HEAD WITHOUT CONTRAST INDICATION: fall TECHNIQUE: CT of the head without intravenous contrast. Radiation Dose Information: CT Dose: CTDI volume is 65.76 mGy. Dose-length product is 2086.46 mGy*cm The dose indicators for CT are the volume Computed Tomography (CT) Dose Index (CTDIvol) and the Dose Length Product (DLP), and are measured in units of mGy and mGy-cm, respectively. These indicators are not patient dose, but values generated from the CT scanner acquisition factors. The report includes radiation exposure data for exposures received during this examination. COMPARISON: None FINDINGS: There is no evidence of acute intracranial hemorrhage, extra-axial collection, mass effect, midline s hift, herniation or hydrocephalus. The ventricles, sulci and cisterns are age appropriate. The johnson-white differentiation is intact. Patchy periventricular and subcortical white matter hypoattenuation is nonspecific but may be related to small vessel ischemic disease. The visualized paranasal sinuses and mastoid air cells are clear. The surrounding soft tissues and osseous structures are unremarkable. IMPRESSION: 1. No acute intracranial abnormality.
[2024-12-21 14:37] LABS: Hematocrit 48.8 % (41.0-53.0); Hemoglobin 16.7 g/dL (13.5-17.5); Mean Corpuscular Hemoglobin 32.6 pg (28.0-32.0); Mean Corpuscular Volume 95.4 fL (80.0-100.0); Nucleated Red Blood Cells % 0.1 %
--- NOTE | 2024-12-21 14:39 | DVH ---
EXAM: CT CERVICAL WITHOUT CONTRAST INDICATION: fall EXAM DATE: 12/21/2024 01:49 PM COMPARISON: None TECHNIQUE: Multiple axial CT images of the cervical spine were obtained using bone algorithm. Axial a nd coronal reformatting was done. Bone and soft tissue windows were reviewed. Radiation Dose Information: CT Dose: CTDI volume is 29.15 mGy. Dose-length product is 1293.86 mGy*cm FINDINGS: The cervical alignment is intact. No acute cervical spine fracture is identified. The vertebral body heights are intact. No suspicious osseous lesions are identified. No significant degenerative changes are identified. There is no prevertebral soft tissue swelling. IMPRESSION: 1. No evidence of acute cervical spine fracture or traumatic malalignment. 2. Sclerotic lesion spinous process of T1 etiology certain may be be calcified bone island. No fractu re. All CT scans at this medical facility are performed using dose modulation techniques as appropriate t o a performed exam including the following: Automated exposure control was utilized; adjustment of th e MA and/or KV according to patient size; and use of iterative reconstruction technique.
[2024-12-21 14:51] LABS: Alanine Aminotransferase 15 U/L (7-40); Albumin 4.0 g/dL (3.2-4.8); Alkaline Phosphatase 90 U/L (46-116); Anion Gap 15 (5-15); BUN/Creatinine Ratio 7.2 (10.0-20.0); Carbon Dioxide 27 mmol/L (20-31); Chloride 99 mmol/L (98-107); Potassium 4.5 mmol/L (3.5-5.1); Sodium 141 mmol/L (136-145); Total Protein 7.8 g/dL (5.7-8.2)
[2024-12-21 14:54] LABS: Bilirubin, Total 1.3 mg/dL (0.2-1.0); Blood Urea Nitrogen 59 mg/dL (9-23); Calcium 8.2 mg/dL (8.7-10.4); Glucose 126 mg/dL (74-106)
--- NOTE | 2024-12-21 17:53 | DVH ---
CLINICAL INDICATION: fall TECHNIQUE: 2 radiographic views of the left clavicle were obtained. Comparison: XY L SHOULDER 2+ VIEW XRAY on DOS: 12/21/24 FINDINGS/IMPRESSION: There appears to be mildly displaced acute fracture of the left medial clavicle which is better appre ciated on the external rotation view of the same day shoulder radiograph [id number] degenerative changes of the left AC joint.
[2024-12-21] MEDS ORDERED: IBUP1TAB4 PO (18:11)
[2024-12-21] MEDS ORDERED: PANT40TA2 PO (18:11)
[2024-12-21] MEDS: HYDROcodone-ACET 5/325MG TAB PO ONE (19:25)
[2024-12-21 22:32] VITALS: BP 136/84; PULSE 74; RESP 16; TEMP 98.2; O2SAT 95
== END 2024-12-21 22:33 | disposition home or self-care (01) ==
LOC: ER 13:20 → EDBD 13:20 → ER 22:33
DX: S42.012A Anterior displaced fracture of sternal end of left clavicle, initial encounter for closed fracture (principal); I12.0 Hypertensive chronic kidney disease with stage 5 chronic kidney disease or end stage renal disease; N18.6 End stage renal disease; E78.5 Hyperlipidemia, unspecified; M19.012 Primary osteoarthritis, left shoulder; Z79.899 Other long term (current) drug therapy; Z95.5 Presence of coronary angioplasty implant and graft; Z99.2 Dependence on renal dialysis; W18.39XA Other fall on same level, initial encounter; Y93.89 Activity, other specified; Y92.89 Other specified places as the place of occurrence of the external cause; Y99.8 Other external cause status
CPT/HCPCS: 29105; 36415; 70450; 72125; 73000; 73030; 80053; 80320; 85025

== ENCOUNTER 2025-03-24 08:25 | Day surgery (SDC) | payer OTHER, MEDICAID ==
[2025-03-22 12:36] LABS: Mean Corpuscular Hemoglobin 32.3 pg (28.0-32.0)
[2025-03-22 12:38] LABS: Hematocrit 55.1 % (41.0-53.0); Hemoglobin 18.6 g/dL (13.5-17.5); Mean Corpuscular Volume 95.8 fL (80.0-100.0); Nucleated Red Blood Cells % 0.7 %
[2025-03-22 12:50] LABS: INR 0.97 (0.9-1.15); Partial Thromboplastin Time 26.2 SEC (24.5-34.5); Prothrombin Time 10.3 sec (9.3-11.8)
[2025-03-22 12:58] LABS: Urine Protein, UAD 3+ (Negative)
[2025-03-22 14:38] LABS: Alanine Aminotransferase 14 U/L (7-40); Albumin 4.6 g/dL (3.2-4.8); Anion Gap 14 (5-15); BUN/Creatinine Ratio 7.8 (10.0-20.0); Calcium 8.8 mg/dL (8.7-10.4); Carbon Dioxide 31 mmol/L (20-31); Glucose 84 mg/dL (74-106); Potassium 4.2 mmol/L (3.5-5.1); Sodium 139 mmol/L (136-145)
[2025-03-22 14:44] LABS: Alkaline Phosphatase 116 U/L (46-116); Bilirubin, Total 1.5 mg/dL (0.2-1.0); Blood Urea Nitrogen 69 mg/dL (9-23); Chloride 94 mmol/L (98-107); Total Protein 8.9 g/dL (5.7-8.2)
[~2025-03-24] VITALS: Ht 170.2 cm; Wt 111.1 kg
[~2025-03-24 08:25] MED LIST changes: +ASPI1TAB20 PO; -ATOR-507 PO; -DOXY-286 PO; -FURO40TA4 PO; -LOSA-534 PO; -NIFE1TAB31 PO; -SODI10PA PO
[2025-03-24] MEDS ORDERED: ceFAZolin 2 GM/D5W50ml 50 ML IV ONE (09:12)
[2025-03-24] MEDS ORDERED: fentaNYL CITRATE 100 MCG/2 ML VL ONE (09:40)
[2025-03-24] MEDS ORDERED: PROPOFOL 10 MG/ML 20 ML IV ONE (09:40)
[2025-03-24] MEDS: LIDOCAINE 1% HCL (LOCAL ANESTH.) INJ 20ML MDV ONE (10:12)
[2025-03-24 10:14] VITALS: PULSE 69; RESP 14; TEMP 97.6; O2SAT 98
--- NOTE | 2025-03-24 10:14 | DVHOP2 ---
Operative Report - 2 Report Details Date: 03/24/25 Preop Diagnosis: 1. Right foot diabetic ulcer 2. Right foot metatarsalgia 3. Right foot pain Postop Diagnosis: Same as preop Surgeon: Geo Motley MD Anesthesiologist: See anesthesia Anesthesia: General Consent: The patient was informed of the risks and benefits of the procedure. These include but are not limited to complications of anesthesia, postoperative infection, incomplete relief of symptoms, recurrence of symptoms, damage to blood vessels, nerves and tendons, deep venous thrombosis, pulmonary embolism and possible need for repeat surgery in the future. Complications: None Estimated Blood Loss: Minimal Fluids: See anesthesia Findings: Consistent with diagnosis Indications for Surgery: Worsening right foot pain Name of Procedure Performed 1. Right second alli osteotomy (06459) 2. Right foot debridement (80765) Procedure Details Procedure Details: PRE-PROCEDURE INFORMATION: In the pre-op holding area, the extremity to be operated on was clearly marked and the patient verified correct laterality of the marking. The patient was transferred to the OR table and placed in a supine position. A timeout was performed in which identification of the correct patient, procedure, location, and materials was done. The right foot and leg were prepped and draped in normal sterile fashion. DESCRIPTION OF PROCEDURE: Attention was directed to the right 2nd metatarsal head where a stab incision was made. The incision was deepened through blunt and sharp dissection. Care was taken to avoid damage to neurovascular structures throughout dissection. Incision was carried to the level of the 2nd metatarsal head, it was noted there was significant plantar flexion of the metatarsal head. Using an MIS bur, the an osteotomy was performed across the neck of the metatarsal head. The metatarsal head was then able to float. Below Subcutaneous debridement, Below subcutaneous tissue excised using # 15 blade, with a total area debrided of sq cm. < 20 sq cm was excised, 100% of the wounds were debrided All surgical wounds were irrigated copiously with saline and closed in layers with the aforementioned suture material. A dry sterile dressing was placed on the surgical extremity. The patient was placed in a post op shoe. POSTOPERATIVE INFORMATION: The patient tolerated the above noted procedure and anesthesia well and was transferred to the PACU with vital signs stable, and vascular status intact with capillary refill intact to all digits. Postoperative instructions reviewed in detail with the patient with written instructions provided. Patient will return to clinic in approximately 10-14 days for first postoperative visit. Patient has the number of the clinic and was instructed to call prior to that time should any problems, questions, or concerns arise. Condition Good Disposition Home Visit Coding Podiatry Date of Service if different f: Mar 24, 2025 Billing Provider: GEO MOTLEY DPM Podiatry Common Visit Codes: PROCEDURE ONLY GEO MOTLEY DPM Mar 24, 2025 10:14
[2025-03-24] MEDS ORDERED: ONDANSETRON HCL 4 MG/2 ML VIAL IV PRN (10:30)
[2025-03-24] MEDS ORDERED: HYDROmorphone HCL 2 MG/ML VL/or syr IV PRN (10:30)
[2025-03-24] MEDS ORDERED: ACETAMINOPHEN IV 1000 MG/100ML (10MG/ML) IV PRN (10:30)
[2025-03-24 10:55] VITALS: BP 154/92; PULSE 65; RESP 14; O2SAT 95
== END 2025-03-25 11:10 | disposition home or self-care (01) ==
LOC: SUR 08:25
PROVIDERS: ATTEND Podiatrist
DX: E11.621 Type 2 diabetes mellitus with foot ulcer (principal); L97.515 Non-pressure chronic ulcer of other part of right foot with muscle involvement without evidence of necrosis; M77.41 Metatarsalgia, right foot; I13.2 Hypertensive heart and chronic kidney disease with heart failure and with stage 5 chronic kidney disease, or end stage renal disease; E11.22 Type 2 diabetes mellitus with diabetic chronic kidney disease; N18.6 End stage renal disease; E66.01 Morbid (severe) obesity due to excess calories; I50.9 Heart failure, unspecified; I25.10 Atherosclerotic heart disease of native coronary artery without angina pectoris; I25.2 Old myocardial infarction; E11.40 Type 2 diabetes mellitus with diabetic neuropathy, unspecified; Z98.890 Other specified postprocedural states; Z68.38 Body mass index [BMI] 38.0-38.9, adult; Z79.82 Long term (current) use of aspirin; Z79.899 Other long term (current) drug therapy; Z95.5 Presence of coronary angioplasty implant and graft; Z99.2 Dependence on renal dialysis
CPT/HCPCS: 11042; 28308; 36415; 80053; 81001; 82962; 85025; 85610; 85730; J0690; J2003; J2704; J3010

== ENCOUNTER 2025-04-19 08:51 | Outpatient (CLI) | payer OTHER, MEDICAID ==
[2025-04-19 09:00] VITALS: BP 133/82; PULSE 80; RESP 16; O2SAT 97
[2025-04-19 09:33] VITALS: BP 132/86; PULSE 78; RESP 16; O2SAT 97
[2025-04-19] MEDS ORDERED: SODI10PA PO (11:02)
[2025-04-19] MEDS ORDERED: LOSA-534 PO (11:02)
[2025-04-19] MEDS ORDERED: NIFE10CA52 PO (11:02)
[2025-04-19] MEDS ORDERED: ATOR40TA52 PO (11:02)
[2025-04-19] MEDS ORDERED: FURO40TA4 PO (11:02)
[2025-04-20] MEDS ORDERED: CLOP75TA28 PO (15:52)
== END 2025-04-19 17:00 | disposition home or self-care (01) ==
LOC: CHF HDHVI 08:51
PROVIDERS: ATTEND Internal Medicine Cardiovascular Disease
DX: Z01.810 Encounter for preprocedural cardiovascular examination (principal); I45.10 Unspecified right bundle-branch block; I25.10 Atherosclerotic heart disease of native coronary artery without angina pectoris
CPT/HCPCS: 93005; G0463

== ENCOUNTER 2025-04-20 11:00 | Day surgery (SDC) | payer OTHER, MEDICAID ==
[2025-04-19 11:52] LABS: Hematocrit 49.9 % (41.0-53.0); Hemoglobin 17.1 g/dL (13.5-17.5); Mean Corpuscular Hemoglobin 32.7 pg (28.0-32.0); Mean Corpuscular Volume 95.4 fL (80.0-100.0); Nucleated Red Blood Cells % 0.2 %
[2025-04-19 12:05] LABS: Anion Gap 12 (5-15); Calcium 9.3 mg/dL (8.7-10.4); Potassium 4.7 mmol/L (3.5-5.1); Sodium 138 mmol/L (136-145)
[2025-04-19 12:06] LABS: INR 0.99 (0.9-1.15); Partial Thromboplastin Time 26.3 SEC (24.5-34.5); Prothrombin Time 10.5 sec (9.3-11.8)
[2025-04-19 12:11] LABS: BUN/Creatinine Ratio 4.4 (10.0-20.0); Glucose 103 mg/dL (74-106)
[2025-04-19 12:16] LABS: Blood Urea Nitrogen 36 mg/dL (9-23); Carbon Dioxide 33 mmol/L (20-31); Chloride 93 mmol/L (98-107)
[~2025-04-20] VITALS: Ht 170.2 cm; Wt 111.1 kg
[~2025-04-20 11:00] MED LIST changes: +ATOR40TA52 PO; +FURO40TA4 PO; +LOSA-534 PO; +NIFE10CA52 PO; +SODI10PA PO
[2025-04-20] MEDS ORDERED: IOHEXOL 350 MG/ML 100ML IJ ONE (11:41)
[2025-04-20] MEDS ORDERED: LIDOCAINE 2%HCL (LOCAL ANESTH.) INJ 20ML MDV ONE (11:55)
[2025-04-20] MEDS ORDERED: MIDAZOLAM HCL 2MG/2ML 2ml VIAL (1mg/ml) ONE (12:23)
[2025-04-20] MEDS ORDERED: fentaNYL CITRATE 100 MCG/2 ML VL ONE (12:23)
[2025-04-20] MEDS ORDERED: ANGIOMAX 250 MG VIAL IV ONE (12:23)
[2025-04-20] MEDS ORDERED: SODIUM CHL 0.9% 50 ML ONE (12:24)
--- NOTE | 2025-04-20 15:37 | DVHHP ---
ADMIT DATE: 04/20/2025 HISTORY OF PRESENT ILLNESS: The patient is 54 years old: * End-stage renal disease. * Hypertension. * Hyperlipidemia. * History of myocardial infarction in 2021. * History of angioplasty with stent placement, 8 cardiac stents, and also 1 right shoulder stent secondary to dialysis catheter occlusion. No history of coronary artery bypass grafting. No history of TIA. No history of peripheral vascular disease at this time. PERTINENT MEDICAL HISTORY: Also significant for history of dialysis, end-stage renal disease. History of heart failure. Diastolic and systolic dysfunction. CURRENT MEDICATIONS: Include atorvastatin, nifedipine, furosemide, and carvedilol. PAST SURGICAL HISTORY: He has a right arm fistula, history of foot surgery for callus removal. The patient at this time has stopped his diabetes medication 2 years ago, since on hemodialysis no longer to be an overt diabetic. Now, because he is being evaluated for kidney transplant, transplant center wanted him to have a coronary angiography. Risks and benefits were explained to the patient. The patient understands and agrees. FAMILY HISTORY: The patient also has significant family history for coronary artery disease, mother with myocardial infarction as well. REVIEW OF SYSTEMS: Denies any fever, chills, melena, hematochezia, hematemesis, hemoptysis, or hematuria. Denies history of CVA as stated above. Denies any history of recent trauma. No travel across. Denies any GI symptomatology such as irritable bowel syndrome or inflammatory bowel disease. Denies any mixed connective tissue disorders. PHYSICAL EXAMINATION: VITAL SIGNS: Blood pressure is 122/80, pulse is 70, O2 saturation 96% on room air. HEENT: Pupils are reactive. Funduscopic exam shows some AV nicking, some hard exudates, otherwise unremarkable. No papilledema appreciated. Sclerae anicteric. Oral mucosa moist. Posterior pharynx without any exudates. NECK: No JVD appreciated. Carotid pulses are 2+ symmetrical, normal upstroke and contour. PULMONARY: Clear to auscultation. No rhonchi, no wheezes, no egophony. CARDIOVASCULAR: Regular rate without S3, without S4. PMI is not displaced. There is a 2/6 systolic murmur without any radiation along the left sternal border. ABDOMEN: Obese, unable to appreciate organomegaly. Liver approximately 5 cm by percussion. Stool guaiac is negative. No epigastric tenderness. No suprapubic tenderness. No CVA tenderness. EXTREMITIES: 1+ pulses bilaterally. MUSCULOSKELETAL: Strength is 5/5 both upper and lower extremities. ASSESSMENT AND PLAN: Thus, the patient has end-stage renal disease on hemodialysis. Now to undergo coronary angiography part of the evaluation for kidney transplant. Further recommendations after the angiogram. Alfredo Bush MD SA/TANA TID: [id number] RECEIPT: [id number]
[2025-04-20] MEDS ORDERED: CLOP75TA28 PO (15:52)
--- NOTE | 2025-04-20 16:27 | DVHOP ---
DATE OF SURGERY: 04/20/2025 DATE OF SURGERY: 04/20/2025 PROCEDURES PERFORMED: * Selective left and right coronary angiography. * Ventriculogram. * Right iliac angiography. * Shockwave thrombectomy of the circumflex artery as well as RCA. * FFR of the circumflex artery. * Conscious sedation. Angioplasty with stent placement of the proximal circumflex with a 3.0 x 18 mm [place] stent and a 3.0 x 12 mm [place] stent in the ostium of the RCA. There were no complications. The patient tolerated the procedure well. Right femoral arteriotomy site was closed using the AngioSeal device. DESCRIPTION OF PROCEDURE: The patient was prepped and draped in the sterile condition. Then, 1% Xylocaine was used to anesthetize the right groin. Using a Cook needle, right femoral artery was engaged with Seldinger technique. A 6-[place] sheath was inserted into the right femoral artery. Using a 6-[place] JL4 catheter and 6-[place] JR4 catheter, selective left and right coronary angiography was performed. Using a 6-[place] pigtail catheter, a ventriculogram was done. Following that, the 6-[place] diagnostic system was exchanged for a 6-[place] interventional system. Using an XB 3.5 guide catheter, the left main was cannulated. Using a Choice PTX support wire, the circumflex lesion was then crossed. It was then predilated using a 2.5 x 15 mm Euphora balloon. Following that, a 3.0 x 12 mm ShockWave thrombectomy device was used to thrombectomize the proximal circumflex. Following that, a 3.0 x 18 mm [place] stent was deployed at 16 atmospheres at the proximal circumflex, proximal to the previous stent placed in the circumflex territory. There were no complications. The patient tolerated the procedure well. It went from a 95% narrowing with an FFR of 6.2 to normal perfusion with less than 10% residual stenosis. Then, the catheter was exchanged for a MONTERO guide catheter with side hose. RCA was cannulated. Then, a Runthrough wire was deployed in the distal PDA and the proximal RCA was then balloon angioplastied using a 2.0 x 12 mm Euphora balloon, then upstaged with 2.5 x 15, then a 3.0 x 15 mm Euphora balloon. Following that, a Oli wire was used. CHOICE PT wire was used. Thrombectomy was performed with a ShockWave device. A 2.5 x 12 mm ShockWave device was deployed across the lesion. Following the treatment, a 3.0 x 12 mm [place] stent was then deployed across the proximal/ostium of the RCA. There were no complications. The patient tolerated the procedure well. Residual stenosis, however, was around 20%. It is a nondominant vessel, less than 2.5 mm in size, except in the proximal segment. Left ventricular function showed mild global hypokinesis with an estimated EF around 40% with an LVEDP of 18 mmHg with no gradient across the aortic valve. Thus, the patient with left main was patent, the left anterior descending artery, mild diffuse disease without any flow restrictive lesion. Previous site of stent placement was patent. Circumflex artery was patent; however, proximal to the previous stents in the circumflex, the patient had a 95% narrowing status post thrombectomy with angioplasty with stent placement with a 3.0 x 18 mm [place] stent with less than 10% residual stenosis. Right coronary artery is a small nondominant vessel, less than 2 mm in diameter, severe diffuse disease throughout. Entire PDA was severely diseased as well, but it is less than 1 mm in diameter. Status post thrombectomy, angioplasty with stent placement with a 2.5 x 12 mm [place] stent in the proximal RCA with no residual stenosis. The patient was then dilated using a 3.0 x 15 mm noncompliant Euphora balloon. Following the dilatation, thrombectomy was done of the proximal RCA. Then, a 3.0 x 12 mm [place] stent was deployed across the proximal/ostial RCA. There were no complications. The patient tolerated the procedure well. The patient, however, has severe diffuse throughout. This is a nondominant RCA. We elected not to do any further intervention. It is a nondominant vessel, less than 2.5 mm in diameter. Now, we improved the inflow. The patient should be doing hemodynamically better. CONCLUSION: The patient had successful angioplasty with stent placement of the circumflex artery following thrombectomy with less than 10% residual stenosis. RCA or ostium had a 90% narrowing status post thrombectomy and stent placement with a 3.0 x 12 mm [place] stent with less than 20% residual stenosis. At this time, conservative medical management, aggressive risk modification, no catheter-based surgical intervention is warranted. Echocardiography will be done to reevaluate the patient's LV function. Otherwise, the patient is now completely revascularized and discharged home. Alfredo Bush MD SA/NICHOLAS TID: [id number] RECEIPT: [id number]
--- NOTE | 2025-04-20 17:02 | DVHDS ---
DATE OF DISCHARGE: 04/20/2025 DISCHARGE DIAGNOSES: The patient underwent successful angioplasty with stent placement of the circumflex. Status post successful angioplasty with stent placement of the proximal/osteal RCA. The patient is now completely revascularized. Conservative medical management, aggressive risk modification. The patient with end-stage renal disease now may proceed with end-stage renal disease. Since he will be on dual antiplatelet therapy, it is important that if indeed he gets a renal transplant, Plavix needs to be held at least for 5 days prior to any surgical intervention. Stable at the time of discharge. DISPOSITION: Home. ACTIVITY: As instructed. DIET: 2 g sodium diet. Alfredo Bush MD SA/ANIBAL TID: [id number] RECEIPT: [id number]
== END 2025-04-20 16:42 | disposition home or self-care (01) ==
LOC: CATH 11:00
PROVIDERS: ATTEND Internal Medicine Cardiovascular Disease
DX: R94.39 Abnormal result of other cardiovascular function study (principal); I25.10 Atherosclerotic heart disease of native coronary artery without angina pectoris; I25.2 Old myocardial infarction; I13.2 Hypertensive heart and chronic kidney disease with heart failure and with stage 5 chronic kidney disease, or end stage renal disease; E11.22 Type 2 diabetes mellitus with diabetic chronic kidney disease; N18.6 End stage renal disease; E78.5 Hyperlipidemia, unspecified; Z95.5 Presence of coronary angioplasty implant and graft; Z99.2 Dependence on renal dialysis; Z82.49 Family history of ischemic heart disease and other diseases of the circulatory system
CPT/HCPCS: 0523T; 36415; 80048; 85025; 85610; 85730; 92972; 92973; 93458; C1725; C1760; C1761; C1769; C1874; C1887; C1894; C9600; J0583; J1644; J2250; J3010; 99152; 99153